=== PATIENT | female | born 1930 | race Caucasian/White ===

== ENCOUNTER 2016-10-04 10:47 | Emergency (ER) | payer MEDICARE, OTHER ==
--- NOTE | 2016-10-04 12:06 | CT ---
CT HEAD WITHOUT IV CONTRAST: Date: 10-04-16 History: Injury after falling out of wheelchair head first. Laceration to forehead. Comparison: 11-02-15 FINDINGS: Again noted is cerebral volume loss. There is dilatation of the ventricular system which is slightly out of proportion to the degree of sulcal atrophy. This is a stable finding probably related to gre ater central cerebral atrophy. Again noted are chronic small vessel ischemic changes not significantly progressed from the prior ex am. There is no evidence of an acute cortical infarction, hemorrhage, mass effect, or midline shift. No calvarial fracture is seen. There is mild subcutaneous soft tissue swelling seen in the right anterior frontal region. No radiop aque foreign body is seen. There is minimal mucosal thickening seen in the posterior right ethmoidal air cell. There has been n o other interval change from the prior exam. IMPRESSION: 1. No acute intracranial abnormalities demonstrated. 2. Chronic small vessel ischemic changes and cerebral volume loss. 3. Small right frontal scalp hematoma. POS: [facility]
--- NOTE | 2016-10-04 12:17 | CT ---
CT CERVICAL SPINE WITHOUT CONTRAST: Date: 10/04/16 HISTORY: [facility] patient. Fell head first out of wheelchair. COMPARISON: CT cervical spine dated 11/12/15. FINDINGS: Exam is severely limited due to motion artifact. The mastoids are without significant fluid. No displaced fracture of the cervical spine is appreciat ed. There is moderate atherosclerotic plaque of both carotid bulbs. The lung apices demonstrate a few sc attered peripheral sub-4 mm nodules, as well as a 6 mm nodule in the left lung apex and posterior le ft upper lobe. IMPRESSION: 1. No acute fracture or malalignment of the cervical spine given the extensive limitations of motio n. 2. Extensive vascular plaque of both carotid bulbs. 3. Multiple lung apex nodules for which chest CT is highly recommended. 4. Atypical right supraclavicular soft tissue nodule which is new from the comparison examination a nd concerning for an abnormal lymph node. A CT of the neck with contrast may be beneficial. Alternat ively, ultrasound guided fine needle aspiration biopsy may also be beneficial. There do appear to be some mild right retropectoral lymph nodes. CODE T. POS: [facility]
== END 2016-10-04 13:05 ==
LOC: MADERS 10:47
DX: S01.81XA Laceration without foreign body of other part of head, initial encounter (principal); I10 Essential (primary) hypertension; D64.9 Anemia, unspecified; W05.0XXA Fall from non-moving wheelchair, initial encounter
CPT/HCPCS: 12011; 70450; 72125; 87070; 87077; 87186; 87205